=== PATIENT | male | born 1965 | race Caucasian/White ===

== ENCOUNTER 2017-03-23 13:04 | Emergency (ER) | payer OTHER, MEDICAID ==
[~2017-03-23] VITALS: Ht 170.2 cm; Wt 88.0 kg
[~2017-03-23 13:04] MED LIST: OLAN20TA3 PO; TRAZ50TA54 PO
[2017-03-23 13:05] VITALS: BP_SYST 130
--- NOTE | 2017-03-23 13:05 | NUR ---
Patient triaged and placed in waiting room. VSS and patient appears in no acute distress at this time. Accompanied by SELF, awaiting available bed, and MD notified of need for MSE.
--- NOTE | 2017-03-23 14:00 | NUR ---
Patient to [facility] chair 1.
--- NOTE | 2017-03-23 14:10 | NUR ---
Oralia Srinivasan SEWING SUPERVISOR at bedside examining patient
[2017-03-23] MEDS ORDERED: KETOROLAC TROMETHAMINE 60 MG/2 ML VIAL IM ONE (14:15)
--- NOTE | 2017-03-23 14:15 | NUR ---
Pt brought by self, A&Ox4, pt c/o lower back pain 11/20 ,pain started after caring a TV, VS WNL,skin pink and warm, cap refill <3, denies urinary symptoms
--- NOTE | 2017-03-23 14:46 | NUR ---
Patient given written and verbal discharge instructions and verbalizes understanding. ER MD discussed with patient the results and treatment provided. Patient in stable condition. ID arm band removed. Rx of Naproxen and Soma given. Patient educated on pain management and to follow up with PMD. Pain Scale 3/10 tolerable for pt . Opportunity for questions provided and answered.
[2017-03-23 14:49] VITALS: BP_SYST 128
== END 2017-03-23 14:49 | disposition home or self-care (01) ==
LOC: SED 13:04
DX: S39.012A Strain of muscle, fascia and tendon of lower back, initial encounter (principal); R03.0 Elevated blood-pressure reading, without diagnosis of hypertension; Z86.59 Personal history of other mental and behavioral disorders; X58.XXXA Exposure to other specified factors, initial encounter; Y93.89 Activity, other specified; Y92.89 Other specified places as the place of occurrence of the external cause; Y99.8 Other external cause status
CPT/HCPCS: 96372; 99283; J1885

== ENCOUNTER 2021-10-30 09:56 | Emergency (ER) | payer OTHER, MEDICAID ==
[~2021-10-30] VITALS: Ht 170.2 cm; Wt 94.8 kg
[2021-10-30 10:07] VITALS: BP_SYST 144
[2021-10-30] MEDS ORDERED: IBUPROFEN 600 MG TABLET PO ONE (10:15)
[2021-10-30] MEDS ORDERED: IBUP-1969 PO (10:38)
[2021-10-30 10:49] VITALS: BP_SYST 144
== END 2021-10-30 10:48 | disposition home or self-care (01) ==
LOC: SED 09:56
DX: S83.91XA Sprain of unspecified site of right knee, initial encounter (principal); W18.30XA Fall on same level, unspecified, initial encounter; Y93.89 Activity, other specified; Y92.89 Other specified places as the place of occurrence of the external cause; Y99.8 Other external cause status
CPT/HCPCS: 73564; 99283